=== PATIENT | male | born 1995 | race Caucasian/White ===

== ENCOUNTER 2018-06-10 18:43 | Emergency (ER) | payer BC, SELFPAY ==
--- NOTE | 2018-06-10 19:12 | RAD REPORT ---
EXAM DESCRIPTION: RAD - Tib Fib Left - 06/10/2018 7:04 pm CLINICAL HISTORY: Traumatic injury to the leg COMPARISON: None. FINDINGS: Transverse fracture is present through the distal shaft of the left tibia and fibula. The tibia fracture is comminuted with several fracture fragments present. There is 1 full shaft width lat eral displacement of the distal fracture fragments along with 2 cm of overlap. There is additional ro tation deformity present with the distal fracture fragments and ankle rotated 90 degrees laterally. S oft tissue swelling is present around the fracture fragments. No foreign body. IMPRESSION: Both-bone fracture of the distal shaft left tibia and fibula. There is 1 shaft width lateral displacement and 2 cm of overlap. 90 degree lateral rotation of the d istal fracture fragments evident as well. Angle is mostly obscured.
[2018-06-10 19:22] LABS: Absolute Lymphocytes (CBC) 1.5 K/uL (0.7-4.9); Absolute Monocytes 0.7 K/uL (0.1-1.3); Absolute Neutrophil 10.6 K/uL (1.8-8.0); Basophils % 0.8 % (0-1.3); Eosinophils % 0.9 % (0-4.4); Hematocrit 42.7 % (39.6-49.0); Lymphocytes % 11.8 % (15.3-44.8); MPV 7.7 fL (7.6-11.3); Monocytes % 5.6 % (3.3-12.3); RBC Red Blood Cell Count 4.95 M/uL (4.33-5.43)
[2018-06-10] MEDS ORDERED: NA CHLORIDE 0.9% 50 ML IV ONE (19:35)
[2018-06-10] MEDS ORDERED: TETANUS & DIPHTHERIA TOX,ADULT 0.5 ML VIAL ONE (19:35)
[2018-06-10] MEDS ORDERED: CEFAZOLIN SODIUM 1 GM/VIAL ONE (19:35)
[2018-06-10] MEDS ORDERED: NA CHLORIDE 0.9% 1,000 ML ONE (19:35)
[2018-06-10 19:37] LABS: BUN Blood Urea Nitrogen 16 mg/dL (7-18); Bicarbonate 24 mmol/L (21-32); Glucose Level 141 mg/dL (74-106); Potassium 3.8 mmol/L (3.5-5.1); Sodium Level 139 mmol/L (136-145)
[2018-06-10] MEDS ORDERED: DIAZEPAM 10 MG/2 ML INJ SYRINGE ONE (19:58)
--- NOTE | 2018-06-10 20:05 | EDPHYS ---
Physician Documentation [facility] Name: Heath Betancourt Age: 22 yrs Sex: Male : 1995 Arrival Date: 06/10/2018 Time: 18:46 Bed 6 Private MD: ED Physician Dank Epperson HPI: 06/10 19:03 This 22 yrs old Male presents to ER via EMS with complaints of Leg Injury. snw 19:03 The patient presents with an injury, a laceration, dirty, open unstable tib/fib snw fracture. Historical: - Allergies: 18:49 No Known Allergies; ss - Home Meds: 18:49 None [Active]; ss - PMHx: 18:49 None; ss - PSHx: 18:49 None; ss - Immunization history:: Adult Immunizations up to date. - Social history:: Smoking status: Patient/guardian denies using tobacco. - Immunization history: Last tetanus immunization: - up to date. - Ebola Screening: : Patient denies exposure to infectious person Patient denies travel to an Ebola-affected area in the 21 days before illness onset. ROS: 19:00 Constitutional: Negative for fever, chills, and weight loss, Eyes: Negative for injury, snw pain, redness, and discharge, ENT: Negative for injury, pain, and discharge, Neck: Negative for injury, pain, and swelling, Cardiovascular: Negative for chest pain, palpitations, and edema, Respiratory: Negative for shortness of breath, cough, wheezing, and pleuritic chest pain, Abdomen/GI: Negative for abdominal pain, nausea, vomiting, diarrhea, and constipation, Back: Negative for injury and pain, : Negative for injury, bleeding, discharge, and swelling, Skin: Negative for injury, rash, and discoloration, Neuro: Negative for headache, weakness, numbness, tingling, and seizure. 19:00 MS/extremity: Positive for injury or acute deformity, decreased range of motion, pain, mild to moderate bleeding. 19:00 Skin: Positive for laceration(s). Exam: 18:56 Constitutional: This is a well developed, well nourished patient who is awake, alert, snw and in no acute distress. Head/Face: Normocephalic, atraumatic. Eyes: Pupils equal round and reactive to light, extra-ocular motions intact. Lids and lashes normal. Conjunctiva and sclera are non-icteric and not injected. Cornea within normal limits. Periorbital areas with no swelling, redness, or edema. ENT: Nares patent. No nasal discharge, no septal abnormalities noted. Tympanic membranes are normal and external auditory canals are clear. Oropharynx with no redness, swelling, or masses, exudates, or evidence of obstruction, uvula midline. Mucous membranes moist. Neck: Trachea midline, no thyromegaly or masses palpated, and no cervical lymphadenopathy. Supple, full range of motion without nuchal rigidity, or vertebral point tenderness. No Meningismus. Chest/axilla: Normal chest wall appearance and motion. Nontender with no deformity. No lesions are appreciated. Cardiovascular: Regular rate and rhythm with a normal S1 and S2. No gallops, murmurs, or rubs. Normal PMI, no JVD. No pulse deficits. Respiratory: Lungs have equal breath sounds bilaterally, clear to auscultation and percussion. No rales, rhonchi or wheezes noted. No increased work of breathing, no retractions or nasal flaring. Abdomen/GI: Soft, non-tender, with normal bowel sounds. No distension or tympany. No guarding or rebound. No evidence of tenderness throughout. Back: No spinal tenderness. No costovertebral tenderness. Full range of motion. Neuro: Awake and alert, GCS 15, oriented to person, place, time, and situation. Cranial nerves II-XII grossly intact. Motor strength 5/5 in all extremities. Sensory grossly intact. Cerebellar exam normal. Normal gait. Psych: Awake, alert, with orientation to person, place and time. Behavior, mood, and affect are within normal limits. 18:56 Musculoskeletal/extremity: Extremities: grossly normal except: noted in the open, unstable left tib/fib fracture with pulses palpable, with moderate bleedin:56 Skin: Appearance: normal except for affected area, injury, laceration(s), the wound is approximately 3.5 cm(s), with a depth of 3 cm(s), of the left brownlee, Subtle paresthesias to dorsal left foot. Vital Signs: 18:46 BP 119 / 74; Pulse 86; Pulse Ox 100% on R/A; ss 18:47 Resp 16; ss 18:49 Temp 98.6(TE); Weight 65.77 kg; Height 5 ft. 11 in. (180.34 cm); Pain 4/10; ss 19:30 BP 136 / 77; Pulse 74; Resp 18; Pulse Ox 100% on R/A; lp1 20:00 BP 143 / 85; Pulse 79; Resp 12; Pulse Ox 100% on R/A; Pain 8/10; lp1 20:30 BP 137 / 78; Pulse 76; Resp 12; Pulse Ox 98% on R/A; lp1 21:00 BP 136 / 75; Pulse 79; Resp 19; Pulse Ox 97% on R/A; lp1 18:49 Body Mass Index 20.22 (65.77 kg, 180.34 cm) ss [place] Coma Score: 18:46 Eye Response: spontaneous(4). Verbal Response: oriented(5). Motor Response: obeys ss commands(6). Total: 15. Trauma Score (Adult): 18:46 Eye Response: spontaneous(1); Verbal Response: oriented(1); Motor Response: obeys ss commands(2); Systolic BP: > 89 mm Hg(4); Respiratory Rate: 10 to 29 per min(4); [place] Score: 15; Trauma Score: 12 MDM: 18:55 Patient medically screened. snw 18:59 Data reviewed: vital signs, nurses notes. Counseling: I had a detailed discussion with snw the patient and/or guardian regarding: the historical points, exam findings, and any diagnostic results supporting the discharge/admit diagnosis. Physician consultation: Luis Angel Shine MD was called at 18:50, was contacted at 18:50, regarding patient's condition, need to evaluate the patient as soon as possible, after a discussion of the case, a recommendation for transfer for higher level of care is made, long bone transfers need to be sent to higher level of care. 20:01 ED course: Acceptance at [facility] without consultation. Dr. Yeung. . [facility] 20:02 ED course: Pt NPO since arrival but had steak dinner at 1730. [facility] 06/10 18:52 Order name: Basic Metabolic Panel; Complete Time: 19:49 [facility] 06/10 18:52 Order name: CBC with Diff; Complete Time: 19:33 [facility] 06/10 18:55 Order name: Tib Fib Left XRAY; Complete Time: 19:25 [facility] 06/10 18:52 Order name: IV Saline Lock; Complete Time: 19:19 snw 06/10 18:52 Order name: Labs collected and sent; Complete Time: 20:08 snw 06/10 18:55 Order name: Long Leg Splint: Posterior w/ Stirrup; Complete Time: 20:28 snw Administered Medications: 19:34 Drug: ceFAZolin 1 grams Volume: 50 ml; Route: IVPB; Infused Over: 30 mins; Site: right lp1 antecubital; 20:16 Follow up: IV Status: Completed infusion; IV Intake: 50ml lp1 19:34 Drug: NS 0.9% 1000 ml Route: IV; Rate: 1 bolus; Site: right antecubital; lp1 20:30 Follow up: IV Status: Completed infusion; IV Intake: 1000ml 1 19:40 Drug: Tetanus-Diphtheria Toxoid Adult 0.5 ml {Legal Administrative Secretary: [employer]. Exp: 1 05/01/2020. Lot #: [id number]. } Route: IM; Site: left deltoid; 21:35 Follow up: Response: No adverse reaction lp1 20:05 Drug: Valium 2 mg Route: IVP; Site: right antecubital; ao 20:30 Follow up: Response: No adverse reaction; Marked relief of symptoms lp1 21:30 Drug: Dilaudid 1 mg Route: IM; Site: right deltoid; lp1 21:36 Follow up: Given prior to transfer lp1 Disposition: 06/11 08:29 Co-signature as Attending Physician, Dank Epperson MD I agree with the assessment and kdr plan of care. Disposition: 06/10/18 20:04 Transfer ordered to [facility]. Diagnosis is Open, neurovascularly intact Tib/Fib fracture. - Reason for transfer: Higher level of care. - Accepting physician is Dr. Davis. - Condition is Stable. - Problem is new. - Symptoms are unchanged. Signatures: Dispatcher [employer] EDMS Dank Epperson MD MD [facility] Susan Whiteside, LOCAL SALES MANAGER-C LOCAL SALES MANAGER-Csnw Jeanette Chanel RN RN ss Rakel Bowers RN RN lp1 Rigo Crawford RN RN ao Corrections: (The following items were deleted from the chart) 06/10 20:06 18:56 Skin: Appearance: normal except for affected area, injury, laceration(s), the snw wound is approximately 3.5 cm(s), with a depth of 3 cm(s), of the left brownlee, snw 21:43 20:04 06/10/2018 20:04 Transfer ordered to [facility]. lp1 Diagnosis is Open, neurovascularly intact Tib/Fib fracture. Reason for transfer: Higher level of care. Accepting physician is Dr. Davis. Condition is Stable. Problem is new. Symptoms are unchanged. snw
--- NOTE | 2018-06-10 20:05 | ER ---
Nurse's Notes [facility] Name: Heath Betancourt Age: 22 yrs Sex: Male : 1995 Arrival Date: 06/10/2018 Time: 18:46 Bed 6 Private MD: Diagnosis: Open, neurovascularly intact Tib/Fib fracture Presentation: 06/10 18:46 Presenting complaint: Patient states: L lower leg pain after landing wrong at [facility] ([facility] Pt has no other complaints. EMS placed splint to affected extremity en route to ED, and reports that it appears injury is a compound fracture as bone was seen protruding from leg. Good pedal pulses noted. Transition of care: patient was not received from another setting of care. Onset of symptoms was June 10, 2018. Risk Assessment: Do you want to hurt yourself or someone else? Patient reports no desire to harm self or others. Initial Sepsis Screen: Does the patient meet any 2 criteria? No. Patient's initial sepsis screen is negative. Does the patient have a suspected source of infection? No. Patient's initial sepsis screen is negative. 18:46 Method Of Arrival: EMS: [facility] 18:46 Acuity: DAVID 2 18:46 Mechanism of Injury: trampoline. Trauma event details: Injury occurred in the county [facility], Injury occurred: in a public building. Injury occurred: June 10, 2018. 18:46 Care prior to arrival: Placed on backboard. Medication(s) given: Fentanyl 150 mcg, ss Zofran 4 mg IVP. Splint in place. Trauma Activation: Alert Physician: ED Physician; Name: ; Notified At: ; Arrived At: Physician: General Surgeon; Name: ; Notified At: ; Arrived At: Physician: Radiology; Name: ; Notified At: ; Arrived At: Physician: Respiratory; Name: ; Notified At: ; Arrived At: Physician: Lab; Name: ; Notified At: ; Arrived At: Historical: - Allergies: 18:49 No Known Allergies; ss - Home Meds: 18:49 None [Active]; ss - PMHx: 18:49 None; ss - PSHx: 18:49 None; ss - Immunization history:: Adult Immunizations up to date. - Social history:: Smoking status: Patient/guardian denies using tobacco. - Immunization history: Last tetanus immunization: - up to date. - Ebola Screening: : Patient denies exposure to infectious person Patient denies travel to an Ebola-affected area in the 21 days before illness onset. Screenin:46 Abuse screen: Denies threats or abuse. Denies injuries from another. Tuberculosis ss screening: No symptoms or risk factors identified. Never had TB. 19:04 Nutritional screening: No deficits noted. Fall Risk No fall in past 12 months (0 pts). ss Secondary diagnosis (15 points) impaired mobility, IV access (20 points). Ambulatory Aid- None/Bed Rest/Nurse Assist (0 pts). Gait- Normal/Bed Rest/Wheelchair (0 pts) Mental Status- Oriented to own ability (0 pts). Primary Survey: 18:46 NO uncontrolled hemorrhage observed. A: The patient is alert. Airway: patent, No ss supplemental oxygen in use on arrival. Oral cavity: clear, Trachea midline. Breathing/Chest: Respiratory pattern: regular. Circulation: Cardiac rhythm: Heart tones present. Skin color: pink, Skin temperature: warm. Disability Alert. Exposure/Environment: There is no evidence of uncontrolled external bleeding. Obvious injury(ies) are noted at this time: probable compound fracture to L lower extremity. Break of the skin noted. 19:30 Reassessment Airway Airway Patent Breathing/Chest Respiratory pattern Regular lp1 Respiratory effort Spontaneous Unlabored Breath sounds Clear Chest inspection Symmetrical Circulation Pulses Palpable Color [place] Disability Alert. Secondary Survey: 18:46 HEENT: Head No injury/deformity Face No injury/deformity Eyes: No injury or deformity ss noted. Ears: clear Nose: clear Throat: No injury or deformity noted. : No deficits noted. Musculoskeletal: Circulation, motion, and sensation intact. Assessment: 18:46 General: Appears comfortable, Behavior is calm, cooperative, Denies fever, feeling ill, ss fatigue, chills. Pain: Complains of pain in left brownlee Pain currently is 4 out of 10 on a pain scale. Quality of pain is described as aching, tender, Pain began 30 min ago. Is continuous. Neuro: Level of Consciousness is awake, alert, obeys commands, Oriented to person, place, time, situation, [employer] Be[employer]itter are equal bilaterally Speech is normal, Facial symmetry appears normal. EENT: Nares are clear Oral mucosa is moist. Throat is clear. Cardiovascular: Denies chest pain, diaphoresis, fatigue, lightheadedness, nausea, palpitations, shortness of breath, syncope, vomiting, Heart tones S1 S2 present Capillary refill < 3 seconds is brisk in bilateral fingers Patient's skin is warm and dry. Pulses are palpable in right radial artery, right dorsalis pedis artery, left radial artery and left dorsalis pedis artery Chest pain is denied. Respiratory: Airway is patent Trachea midline Respiratory effort is even, unlabored, Respiratory pattern is regular, symmetrical, Denies cough, shortness of breath pain with respiration, pain with cough, pain with movement. GI: No signs and/or symptoms were reported involving the gastrointestinal system. : No signs and/or symptoms were reported regarding the genitourinary system. Derm: Skin is intact, is healthy with good turgor, Skin is dry, Skin is pink, warm \T\ dry. normal. Musculoskeletal: Circulation, motion, and sensation intact. 19:30 Reassessment: Patient complaint of pain to left lower leg; Family at bedside, aware of lp1 pending transfer. Cardiovascular: Pulses are palpable in left dorsalis pedis artery. Derm: Wound noted Other: break in skin to left lower leg, covered with gauze and gauze roll. Musculoskeletal: Capillary refill < 3 seconds, in left toes. Bony deformity noted of left brownlee. 19:47 Reassessment: Report given to ALLY Santana at [facility]. lp1 20:30 Reassessment: Patient appears in no apparent distress at this time. Family and patient lp1 updated on waiting for available EMS for transfer; Patient states relief after application of splint. 21:15 Reassessment: [place] [facility] at bedside for transfer to [facility]. lp1 Vital Signs: 18:46 BP 119 / 74; Pulse 86; Pulse Ox 100% on R/A; ss 18:47 Resp 16; ss 18:49 Temp 98.6(TE); Weight 65.77 kg; Height 5 ft. 11 in. (180.34 cm); Pain 4/10; ss 19:30 BP 136 / 77; Pulse 74; Resp 18; Pulse Ox 100% on R/A; lp1 20:00 BP 143 / 85; Pulse 79; Resp 12; Pulse Ox 100% on R/A; Pain 8/10; lp1 20:30 BP 137 / 78; Pulse 76; Resp 12; Pulse Ox 98% on R/A; lp1 21:00 BP 136 / 75; Pulse 79; Resp 19; Pulse Ox 97% on R/A; lp1 18:49 Body Mass Index 20.22 (65.77 kg, 180.34 cm) ss [place] Coma Score: 18:46 Eye Response: spontaneous(4). Verbal Response: oriented(5). Motor Response: obeys ss commands(6). Total: 15. Trauma Score (Adult): 18:46 Eye Response: spontaneous(1); Verbal Response: oriented(1); Motor Response: obeys ss commands(2); Systolic BP: > 89 mm Hg(4); Respiratory Rate: 10 to 29 per min(4); [place] Score: 15; Trauma Score: 12 ED Course: 18:46 Patient arrived in ED. ss 18:46 Susan Whiteside FNP-C is [facility]. snw 18:46 Dank Epperson MD is Attending Physician. snw 18:46 Patient has correct armband on for positive identification. Placed in gown. Bed in low ss position. Call light in reach. Side rails up X 1. 18:46 Maintain EMS IV. Dressing intact. Good blood return noted. Site clean \T\ dry. Gauge \T\ ss site: 20 gauge in R AC. Patient maintains SpO2 saturation greater than 95% on room air. 18:49 Triage completed. ss 18:49 Arm band placed on right wrist. ss 19:04 Tib Fib Left XRAY In Process Unspecified. EDMS 19:19 Rakel Bowers, ALLY is Primary Nurse. lp1 19:30 Thermoregulation: warm blanket given to patient. lp1 20:06 Orthoglass splint: Posterior long leg splint applied on stirrup splint applied on left oe leg. 20:29 No provider procedures requiring assistance completed. lp1 21:41 Patient transferred, IV remains in place. lp1 Administered Medications: 19:34 Drug: ceFAZolin 1 grams Volume: 50 ml; Route: IVPB; Infused Over: 30 mins; Site: right lp1 antecubital; 20:16 Follow up: IV Status: Completed infusion; IV Intake: 50ml lp1 19:34 Drug: NS 0.9% 1000 ml Route: IV; Rate: 1 bolus; Site: right antecubital; lp1 20:30 Follow up: IV Status: Completed infusion; IV Intake: 1000ml lp1 19:40 Drug: Tetanus-Diphtheria Toxoid Adult 0.5 ml {Survey Research Associate: [employer]. Exp: lp1 05/01/2020. Lot #: [id number]. } Route: IM; Site: left deltoid; 21:35 Follow up: Response: No adverse reaction lp1 20:05 Drug: Valium 2 mg Route: IVP; Site: right antecubital; ao 20:30 Follow up: Response: No adverse reaction; Marked relief of symptoms lp1 21:30 Drug: Dilaudid 1 mg Route: IM; Site: right deltoid; lp1 21:36 Follow up: Given prior to transfer lp1 Intake: 20:16 IV: 50ml; Total: 50ml. lp1 20:30 IV: 1000ml; Total: 1050ml. lp1 21:30 IV: 1000ml (IV Fluid); Total: 2050ml. lp1 Output: 21:30 Urine: 800ml (Voided); Total: 800ml. lp1 Outcome: 20:04 ER care complete, transfer ordered by MD. ram 21:42 Transferred by ground EMS to [facility], Transfer form completed. X-rays sent lp1 w/ patient. 21:42 Condition: stable 21:42 Instructed on the need for transfer. 21:42 Patient's length of stay in the Emergency Department was greater than 2 hours. waiting lp1 for available EMS for transferPatient's length of stay extended due to 21:43 Patient left the ED. lp1 Signatures: Dispatcher [employer] EDMS Susan Whiteside, CATHY GENERAL FOREMAN-Jeanette Shoemaker RN RN ss Rakel Bowers RN RN 1 Rigo Crawford, RN RN Hernando Medina Corrections: (The following items were deleted from the chart) 19:06 18:46 Care prior to arrival: None. [email or web address]
[2018-06-10] MEDS ORDERED: HYDROMORPHONE HCL 1 MG/ML INJ ONE (21:37)
== END 2018-06-10 21:43 | disposition short-term general hospital (02) ==
LOC: ER 18:43
PROC: 2W3MX1Z Immobilization of Left Lower Extremity using Splint (ICD-10-PCS; principal; 2018-06-10)
DX: S82.202B Unspecified fracture of shaft of left tibia, initial encounter for open fracture type I or II (principal); S82.402B Unspecified fracture of shaft of left fibula, initial encounter for open fracture type I or II; W19.XXXA Unspecified fall, initial encounter; Y93.44 Activity, trampolining; Y92.89 Other specified places as the place of occurrence of the external cause; Z23 Encounter for immunization
CPT/HCPCS: 36415; 80048; 85025; 90714; 96365; 96372; 96375; 99285; J0690; J1170; J3360; J7030